=== PATIENT | female | born 2005 | race Caucasian/White ===

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

== ENCOUNTER 2023-02-02 16:24 | Emergency (ER) | payer BC, SELFPAY ==
[2023-02-02 16:40] VITALS: BP 119/73; PULSE 87; RESP 18; TEMP 37.2; O2SAT 99; BMI 26.2
--- NOTE | 2023-02-02 17:04 | CRLHL7_ITS ---
For Patients: As a result of the Century Cures Act, medical imaging exams and procedure reports are released immediately into your electronic medical record. You may view this report before your referring provider. If you have questions, please contact your health care provider. INDICATION: Right lower quadrant pain x 20 hours TECHNIQUE: CT abdomen and pelvis acquired with 72 cc Isovue 370 IV contrast. Permanently recorded images are archived. COMPARISON: None. FINDINGS: Lower chest: Unremarkable. Liver: Unremarkable. Normal in size and attenuation. No suspicious masses. Gallbladder and bile ducts: Unremarkable. No stones or inflammation. No biliary dilatation. Pancreas: Unremarkable. No mass or inflammation. Spleen: Unremarkable. Normal in size. No masses. Adrenal glands: Unremarkable. No nodules. Kidneys, Ureters, and Bladder: Unremarkable. No suspicious masses, stones, or hydronephrosis. Unremarkable ureters and bladder. GI tract: Moderate colonic stool burden. Normal in caliber. No sign of inflammation. Normal appendix. Vasculature: Abdominal aorta is normal in caliber. Mesenteric arteries are patent. Lymph nodes: No lymphadenopathy. Peritoneum/Abdominal Wall: Unremarkable. No free air or significant free fluid. Pelvis: Unremarkable. Bones: Unremarkable for age. IMPRESSION: No acute findings within the abdomen or pelvis. Normal appendix. Moderate colonic stool burden. Recommend correlation for constipation. Please note that all CT scans at this facility use dose modulation, iterative reconstruction, and/or weight-based dosing when appropriate to reduce radiation dose to as low as reasonably achievable. Dictated by Greg Lal MD @ 02/02/2023 6:32:40 PM (Electronically Signed)
[2023-02-02 17:38] LABS: Ur HCG Qualitative* Negative (Negative)
[2023-02-02 17:38] LABS: Bilirubin Urine Negative (Negative); Blood Urine Negative (Negative); Color Urine Yellow (Yellow); Glucose Urine Negative (Negative); Ketones Urine Trace (Negative); Leukocyte Esterase Urine Negative (Negative); Nitrite Urine Negative (Negative); Protein Urine Negative (Negative); pH Urine 8.5 (5.0-8.5)
[2023-02-02 17:55] LABS: Basophils Absolute Auto 0.03 K/uL (0.00-0.30); Basophils Percent Auto 0.4 % (0.0-3.0); Eosinophils Absolute Auto 0.08 K/uL (0.00-0.50); Eosinophils Percent Auto 1.1 % (0.0-7.0); Hematocrit 42.9 % (33.0-51.0); Hemoglobin* 14.5 gm/dL (12.0-16.0); Immature Granulocytes Abs Auto 0.01 K/uL (0.00-0.30); Immature Granulocytes Pct Auto 0.1 %; Lymphocytes Absolute Auto 2.42 K/uL (0.90-2.90); Lymphocytes Percent Auto 32.2 % (20-44); Mean Corpuscular HGB Conc 34 gm/dL (32-36); Mean Corpuscular Hemoglobin 27 pg (26-34); Mean Corpuscular Volume 81 fL (80-100); Monocytes Percent Auto 8.1 % (0.0-11.0); Neutrophils Absolute Auto 4.37 K/uL (1.7-7.0); Neutrophils Percent Auto 58.1 % (42.0-72.0); Platelet Count* 333 K/uL (140-440); RDW Coefficient of Variation % 12.5 % (11.5-15.5); Red Blood Count 5.32 m/uL (4.00-5.20); White Blood Count* 7.52 K/uL (4.50-11.00)
[2023-02-02 17:56] LABS: Slide Review Reflex No
--- NOTE | 2023-02-02 17:58 | ED.GENADULT ---
HPI - General Adult General Time Seen by Provider: 17:58 Date Seen: 03/04/23 Chief complaint: Abdominal Pain Stated complaint: Lower abdominal pain Time Seen by Provider: 02/02/23 17:30 Source: patient, RN notes reviewed and old records reviewed Mode of arrival: ambulatory Limitations: no limitations History of Present Illness HPI narrative: 17-year-old female who comes today with right-sided abdominal pain. Started today. Pain is in the right mid abdomen and occasionally radiates across the abdomen. Last bowel movement was loose stool about 4 hours prior to coming emergency department. Feels little bit like menstrual cramps more severe. No dysuria or hematuria, did notice a small amount of blood in the stool last time she went. No prior surgeries and has not taken anything for this, did take Zofran earlier for vomiting although she had a migraine also. Related Data Home Medications Medication Instructions Recorded Confirmed drospirenone 3 mg-ethinyl 1 tab PO 06/24/22 07/24/22 estradiol 0.02 mg tablet guanfacine 1 mg tablet 1 mg PO 06/24/22 07/24/22 topiramate 25 mg tablet 25 mg PO BID 02/02/23 02/02/23 Previous Rx's Medication Instructions Recorded ondansetron 4 mg disintegrating 4 mg PO Q8H PRN nausea and 07/24/22 tablet vomiting #7 tabs dicyclomine 10 mg capsule 10 mg PO QID PRN abdominal pain 02/02/23 #20 caps polyethylene glycol 3350 17 17 g PO DAILY #238 grams 02/02/23 gram/dose oral powder (Miralax) Allergies Allergy/AdvReac Type Severity Reaction Status Date / Time amoxicillin Allergy Mild Rash Verified 02/02/23 17:46 Penicillins Allergy Mild Rash Verified 02/02/23 17:46 Sulfa (Sulfonamide Allergy Mild Rash Verified 02/02/23 17:46 Antibiotics) PFSH [facility] Social History Smoking Status: Never smoker How often do you have a drink containing alcohol: monthly or less How often do you have six or more drinks on one occasion: Never AUDIT-C Alcohol total score: 1 Non-prescribed substance use: denies use Exam Narrative: Exam Narrative: General: Well-developed and well-nourished, no acute distress Head: Atraumatic and normocephalic Eyes: Pupils are equal reactive, extraocular motions intact, conjunctiva clear ENT: External nose and ears are normal, posterior pharynx without erythema or exudate Neck: No midline cervical tenderness, full spontaneous range of motion the neck, trachea midline, no adenopathy Heart: Regular rate and rhythm no murmurs or thrills Lungs: Clear to auscultation bilaterally without wheezes or crackles Abdomen: Mild diffuse tenderness particularly epigastric, suprapubic, periumbilical, and right-sided. Musculoskeletal: No tenderness, deformity, or edema Neurologic: Awake, alert, and oriented x3, no gross focal neurologic deficits, cranial nerves intact as tested Psych: Mood and affect are appropriate Skin: No rashes Const: Vital Signs, click to edit/add: Vital Signs - 24 hr 02/02/23 16:40 Temperature 99 F Pulse Rate [Pulse Oximeter] 87 Respiratory Rate 18 Blood Pressure [Ri ght Upper Arm] 119/73 Pulse Oximetry 99 Oxygen Delivery Me thod Room Air Course Course Hospital Course: Patient seen and examined, prior records are reviewed. Patient presents today with right-sided abdominal pain along with nausea vomiting. On initial exam, she has some generalized abdominal tenderness other than on the left side of the abdomen. test is negative. CT scan independently interpreted by me demonstrates moderate volume of stool but no other acute findings. Radiology interpretation is pending, labs independently interpreted by me with normal white blood cell count, normal urinalysis. Reevaluation(s) Time of Reevaluation #1: 18:39 Reevaluation #1: Labs independently interpreted by me with mild hypokalemia otherwise normal. Patient will be given MiraLax, Bentyl, and is stable for discharge. Vital Signs Vital signs: Initial Vital Signs Temperature 99 F 02/02/23 16:40 Temperature Source Temporal Artery Scan 02/02/23 16:40 Pulse Rate 87 02/02/23 16:40 Respiratory Rate 18 02/02/23 16:40 Blood Pressure 119/73 02/02/23 16:40 Blood Pressure Mean 88 02/02/23 16:40 Blood Pressure Position Supine 02/02/23 16:40 Pulse Oximetry 99 02/02/23 16:40 Oxygen Delivery Method Room Air 02/02/23 16:40 Vital Signs Temperature 99 F 02/02/23 16:40 Pulse Rate 87 02/02/23 16:40 Respiratory Rate 18 02/02/23 16:40 Blood Pressure 119/73 02/02/23 16:40 Pulse Oximetry 99 02/02/23 16:40 Oxygen Delivery Method Room Air 02/02/23 16:40 Temperature 99 F 02/02/23 16:40 Pulse Rate 87 02/02/23 16:40 Respiratory Rate 18 02/02/23 16:40 Blood Pressure 119/73 02/02/23 16:40 Pulse Oximetry 99 02/02/23 16:40 Oxygen Delivery Method Room Air 02/02/23 16:40 Medical Decision Making Lab Data Labs: Lab Results 02/02/23 02/02/23 02/02/23 Range/Units 15:29 17:04 17:44 WBC 7.52 (4.50-11.00) K/uL RBC 5.32 H (4.00-5.20) m/uL Hgb 14.5 (12.0-16.0) gm/dL Hct 42.9 (33.0-51.0) % MCV 81 (80-100) fL MCH 27 (26-34) pg MCHC 34 (32-36) gm/dL RDW Coeff of Marlen 12.5 (11.5-15.5) % Plt Count 333 (140-440) K/uL Neut % (Auto) 58.1 (42.0-72.0) % Lymph % (Auto) 32.2 (20-44) % Mckinley % (Auto) 8.1 (0.0-11.0) % Eos % (Auto) 1.1 (0.0-7.0) % Baso % (Auto) 0.4 (0.0-3.0) % Neut # (Auto) 4.37 (1.7-7.0) K/uL Lymph # (Auto) 2.42 (0.90-2.90) K/uL Mckinley # (Auto) 0.60 (0.00-0.90) K/UL Eos # (Auto) 0.08 (0.00-0.50) K/uL Baso # (Auto) 0.03 (0.00-0.30) K/uL Abs Immat Gran (auto) 0.01 (0.00-0.30) K/uL Imm/Tot Granulo (auto) 0.1 % Sodium 138 (135-149) mmol/L Potassium 3.4 L (3.6-5.1) mmol/L Chloride 106 (96-114) mmol/L Carbon Dioxide 24 (20-32) mmol/L BUN 12 (5-24) mg/dL Creatinine 0.7 (0.6-1.2) mg/dL Estimated Creat Clear 106.93 Estimated GFR 128 ml/min Glucose 98 (60-115) mg/dL Calcium 9.3 (8.7-10.8) mg/dL Urine Color Yellow (Yellow) Urine Appearance Clear (Clear) Urine pH 8.5 (5.0-8.5) Ur Specific [place] 1.020 (1.000-1.030) Urine Protein Negative (Negative) Urine Glucose (UA) Negative (Negative) Urine Ketones Trace A (Negative) Urine Blood Negative (Negative) Urine Nitrite Negative (Negative) Urine Bilirubin Negative (Negative) Urine Urobilinogen 1.0 (0.2-1.0) Ur Leukocyte Esterase Negative (Negative) Urine RBC 0-2 (0-2) Urine WBC 2-5 (0-5) Ur Squamous Epith Cells Moderate A (None-Few) Urine Bacteria Moderate A (None) Urine HCG, Qual Negative (Negative) Discharge Plan Discharge Clinical Impression: Constipation Patient Disposition: Home, Self-Care Condition: Stable Instructions: Constipation (DC) Additional Instructions: Take Tylenol and ibuprofen as needed for pain, warm packs can help with cramping as well. Take MiraLax as prescribed Follow-up with your primary care doctor this week Activity Level: No Restrictions Discharge Diet: Regular Prescriptions: New polyethylene glycol 3350 [Miralax] 17 gram/dose powder 17 g PO DAILY Qty: 238 0RF dicyclomine 10 mg capsule 10 mg PO QID PRN (Reason: abdominal pain) Qty: 20 0RF No Action drospirenone-ethinyl estradiol 3-0.02 mg tablet 1 tab PO Patient Comments: TAKE 1 TABLET BY MOUTH EVERY DAY guanfacine 1 mg tablet 1 mg PO Patient Comments: TAKE 1 TABLET BY MOUTH DIRECTED FOR 90 DAYS ondansetron 4 mg tablet,disintegrating 4 mg PO Q8H PRN (Reason: nausea and vomiting) Qty: 7 0RF topiramate 25 mg tablet 25 mg PO BID Follow Up/Referrals: Regine Olivares 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
[2023-02-02 18:00] LABS: Appearance Urine Clear (Clear)
[2023-02-02 18:07] LABS: Chloride* 106 mmol/L (96-114); Potassium* 3.4 mmol/L (3.6-5.1); Sodium* 138 mmol/L (135-149)
[2023-02-02 18:09] LABS: Creatinine* 0.7 mg/dL (0.6-1.2); Est. Creatinine Clearance* 106.93; Estimated Glomerular Filt Rate 128 ml/min
[2023-02-02 18:10] LABS: Blood Urea Nitrogen* 12 mg/dL (5-24); Calcium* 9.3 mg/dL (8.7-10.8); Carbon Dioxide* 24 mmol/L (20-32); Glucose* 98 mg/dL (60-115)
[2023-02-02 18:11] LABS: Bacteria Urine Moderate; RBC Urine 0-2 (0-2); Squamous Epithelial Cell Urine Moderate (None-Few)
--- OUTSIDE RECORDS SUMMARY | 2023-02-02 18:20 | XMS_ITS | Clinical Summary ---
Author Name Unknown Address [address] [facility], [place] [address] [place] [address] Phone Organization OSMAN BAUTISTA Address [address] [facility], [facility] [address] [place] [address] Phone Care Team Providers Care Natural Gas Treating Unit Operator Name Role Phone Victor M Garza MD Unavailable [phone] None, None Primary Care Provider Unavailabl e Reason for Visit and Chief Complaint The Chief Complaint is: Recheck right foot/ankle Problems Includes: Problems addressed during this encounter and other active Problems All Visits Onset Date Resolved Date Provider Condition S tatus Arthralgia - Ankle / Foot Right 03/13/2022 Anne-Marie Madrid PA-C Active Last Documented On 03/13/2022 2:44PM ; OSMAN BAUTISTA Note: Unchanged Plan of Treatment At this point, she feels like she is back to baseline. We will get her measured and fit for an ankle brace and have her begin some therapy to progress activities back to sports through the training room. I will see her in 2-3 weeks in the training room for a final evaluation and then hopefully release her fully thereafter. ELIZABETHB/jone CC: [facility] Training Room - Last Documented On 04/07/2022 7:23AM ; OSMAN BAUTISTA Pending Tests Order Diagnosis Results Due Ordering P rovider MRI - *RIGHT MRI Ankle w/o contrast Pain in right ankle and joints of right foot 04/14/22 Victor M Garza MD Last Documented On 2 9:05AM ; OSMAN BAUTISTA MRI - *RIGHT MRI Foot w/o contrast Pain in ri ght ankle and joints of right foot 04/14/22 Victor M Garza MD Last Documented On 2 9:05AM ; OSMAN BAUTISTA Instructions to patient Lose weight Last Documented On 2 8:51AM ; OSMAN BAUTISTA Education and Decision Aids were provided during visit for: Pain in right ankle and join ts of right foot (Problem) Last Documented On 2 2:15PM ; OSMAN BAUTISTA Assessments Includes: Assessments from this encounter Findings 1. Right ankle sprain, improved. - Last Documented On 04/07/2022 7:23AM ; OSMAN BAUTISTA 2. Chronic lateral foot pain with small avulsion off the cuboid. - Last Documented On 04/07/2022 7:23AM ; OSMAN BAUTISTA Instructions Includes: Instructions from this encounter Instructions to patient Lose weight Last Documented On 2 8:51AM ; OSMAN BAUTISTA Education and Decision Aids were provided during visit for: Pain in right ankle and join ts of right foot (Problem) Last Documented On 2 2:15PM ; OSMAN BAUTISTA Medical Equipment - Implanted Devices Includes: Current Devices No Medical Equipment Recorded Medications Includes: Medications discussed during this encounter and other current Medications Past Medications on file Relafen 750 MG Oral Tablet 03/17/2022 - 05/16/2022 Pro vider: Anne-Marie Madrid PA-C Diagnosis: 1 tablet twice a day with food Last Documented On 03/17/2022 4:38PM By Anne-Marie ALVAREZ ; OSMAN BAUTISTA Sertraline HCl 50 MG Oral Tablet 03/13/2022 - 04/12/20 Provider: Diagnosis: Last Documented On 2 2:30PM By Natalia De Dios ; MD [facility] guanFACINE HCl 1 MG Oral Tablet 03/13/2022 - 2 Provider: Diagnosis: Last Documented On 2 2:30PM By Natalia De Dios ; OSMAN BAUTISTA Drospirenone-Ethinyl Estradi ol 3-0.02 MG Oral Tablet 03/13/2022 - 04/10/2022 Provider: Diagnosis: Last Documented On 2 2:30PM By Natalia De Dios ; OSMAN BAUTISTA Medications Administered Includes: Administered Medications from this encounter No Administered Medications Recorded Vital Signs Includes: Vital Signs from this encounter Vital Name 04/03/2022 08:50A Height (in) 62 Weight (lb) 146 Body Mass Index (kg/m2) 26.7 BMI Percentile (percentile) 87 Body Surface Area (m2) 1.7 Last Documented On: 04/03/2022 8:51AM ; OSMAN BAUTISTA Results Includes: Results discussed during this encounter No Results Recorded For Specified Dates History of [...] OF SYSTEMS: Previous Review of Systems intake questionnaire reviewed. General: The patient currently denies recent fever or chills. Cardiovascular/Pulmonary: The patient denies chest pain or shortness of breath new from baseline. Psychological: Alert, oriented, appropriate during exam. Social History Description Last Updated Tobacco non-user 03/13/2022 Last Documented On 2 8:50AM ; OSMAN BAUTISTA No consumption of alcohol 03/13/2022 Last Documented On 2 8:50AM ; OSMAN BAUTISTA Non-smoker 03/13/2022 Last Documented On 2 8:50AM ; OSMAN BAUTISTA Not using drugs 03/13/2022 Last Documented On 2 8:50AM ; OSMAN BAUTISTA Smoking Status Unknown Procedures and Surgical History Includes: Procedures from this encounter Procedures Code Diagnosis Performing Provider Service Location Service Date AFO ANKLE GAUNTLET PRE OTS Ankle orthosis, ankle ga (Purchase, RT) L1902 Pain in right ankle and joints of right foot Victor M SULLIVAN [place] 04/03/2022 Last Documented On 2 8:54AM ; OSMAN BAUTISTA use of tobacco assessment performed 1000F Last Documented On 2 8:51AM ; OSMAN BAUTISTA Medical History Includes: Medical History addressed during this encounter No Medical History Recorded Family History Includes: Family History addressed during this encounter No Family History Recorded Review of Systems Includes: Review of Systems from this encounter No Review of Systems Recorded Mental Status Includes: Mental Status from this encounter No Mental Status Recorded Functional Status Includes: Functional Status from this encounter No Functional Status Recorded Physical Exam Includes: Physical Exam from this encounter Allergies Includes: Active Allergies Substance Type Reaction Onset Date Resolved Date Statu s Penicillins Allergy 03/13/2022 Active Last Documented On 2 8:51AM ; MD TEODORA SHELL, OSMAN Amoxicillin Allergy 03/13/2022 Active Last Documented On 2 8:51AM ; MD TEODORA SHELL, Encounters Encounter Provider Location Date Check-In Time Check-Out Time Diagnosis Follow Up Victor M Garza MD [facility] 04/03/2022 8:47AM 9:11AM Insurance Includes: Active Insurance Policies Plan Name Member ID Group # Subscriber Relationship Effect shane Dates - O - Network Blue [id number] Usha Patel Self Clinical Notes Includes: Clinical Notes from this encounter No Clinical Notes Recorded
--- OUTSIDE RECORDS SUMMARY | 2023-02-02 18:20 | XMS_ITS ---
Care Plan - OSMAN BAUTISTA Created on: February 02, 2023 Usha Patel : 2005 Sex: Female Author Name Unknown Address [address] [facility] [address] [place] [phone] Phone Organization OSMAN BAUTISTA Address [address] [facility] [address] [place] [address] Phone Care Team Providers Care Hemmer Lockstitch Name Role Phone Victor M Garza MD Unavailable [phone] None, None Primary Care Provider Unavailabl e
--- OUTSIDE RECORDS SUMMARY | 2023-02-02 18:20 | XMS_ITS ---
Author Name Unknown Address [address] [place] [address] Phone Organization OSMAN BAUTISTA Address [address] [facility], [place] [address] [place] [address] Phone Care Team Providers Care Laborer Driver Name Role Phone Victor M Garza MD Unavailable [phone] None, None Primary Care Provider Unavailabl e Problems Includes: Active, inactive, and resolved Problems All Visits Onset Date Resolved Date Provider Condition S tatus Arthralgia - Ankle / Foot Right 03/13/2022 Anne-Marie Madrid PA-C Active Last Documented On 03/13/2022 2:44PM ; OSMAN BAUTISTA Note: Unchanged Plan of Treatment Instructions to patient Lose weight Last Documented On 2 8:51AM ; OSMAN BAUTISTA Lose weight Last Documented On 2 2:45PM ; OSMAN BAUTISTA Lose weight Last Documented On 2 2:37PM ; OSMAN BAUTISTA Education and Decision Aids were provided during visit for: Pain in right ankle and join ts of right foot (Problem) Last Documented On 2 2:15PM ; OSMAN BAUTISTA Pain in right ankle and join ts of right foot (Problem) Last Documented On 2 3:57PM ; OSMAN BAUTISTA Pain in right ankle and join ts of right foot (Problem) Last Documented On 2 2:49PM ; OSMAN BAUTISTA Assessments Includes: Assessments for all patient encounters No Assessments Recorded Instructions Includes: Instructions for all patient encounters Instructions to patient Lose weight Last Documented On 2 8:51AM ; OSMAN BAUTISTA Lose weight Last Documented On 2 2:45PM ; OSMAN BAUTISTA Lose weight Last Documented On 2 2:37PM ; OSMAN BAUTISTA Education and Decision Aids were provided during visit for: Pain in right ankle and join ts of right foot (Problem) Last Documented On 2 2:15PM ; OSMAN BAUTISTA Pain in right ankle and join ts of right foot (Problem) Last Documented On 2 3:57PM ; OSMAN BAUTISTA Pain in right ankle and join ts of right foot (Problem) Last Documented On 2 2:49PM ; OSMAN BAUTISTA Medical Equipment - Implanted Devices Includes: Current and historical Devices No Medical Equipment Recorded Medications Includes: Current and historical Medications Past Medications on file Relafen 750 MG Oral Tablet 03/17/2022 - 05/16/2022 Pro vider: Anne-Marie Madrid PA-C Diagnosis: 1 tablet twice a day with food Last Documented On 03/17/2022 4:38PM By Anne-Marie ALVAREZ ; MD TEODORA SHELL, OMSAN Sertraline HCl 50 MG Oral Tablet 03/13/2022 - 04/12/20 22 Provider: Diagnosis: Last Documented On 2 2:30PM By Natalia De Dios ; MD TEODORA SHELL, OSMAN guanFACINE HCl 1 MG Oral Tablet 03/13/2022 - 2 Provider: Diagnosis: Last Documented On 2 2:30PM By Natalia De Dios ; OSMAN BAUTISTA Drospirenone-Ethinyl Estradi ol 3-0.02 MG Oral Tablet 03/13/2022 - 04/10/2022 Provider: Diagnosis: Last Documented On 2 2:30PM By Natalia De Dios ; OSMAN BAUTISTA Drospirenone-Ethinyl Estradi ol 3-0.02 MG Oral Tablet 02/14/2022 - 03/13/2022 Provider: Diagnosis: Last Documented On 2 2:30PM By Natalia De Dios ; OSMAN BAUTISTA guanFACINE HCl 1 MG Oral Tablet 02/08/2022 - 2 Provider: Diagnosis: Last Documented On 2 2:30PM By Natalia De Dios ; OSMAN BAUTISTA Sertraline HCl 50 MG Oral Tablet 01/09/2022 - 03/13/20 Provider: Diagnosis: Last Documented On 2 2:30PM By Natalia De Dios ; OSMAN BAUTISTA Medications Administered Includes: Administered Medications in patient's chart No Administered Medications Recorded Vital Signs Includes: Vital Signs from 02/02/2022 through 02/02/2023 Vital Name 04/03/2022 08:50A 03/17/2022 02:44P 03/13 02:36P Height (in) 62 62 62 Weight (lb) 146 142 144 Body Mass Index (kg/m2) 26.7 26.0 26.3 BMI Percentile (percentile) 87 85 86 Body Surface Area (m2) 1.7 1.7 1.7 Last Documented On: 04/03/2022 8:51AM ; OSMAN BAUTISTA 03/17/2022 2:44PM ; OSMAN BAUTISTA 03/13/2022 2:37PM ; OSMAN BAUTISTA Results Includes: Results from 02/02/2022 through 02/02/2023 No Results Recorded For Specified Dates History of Present Illness History of Present Illness not supported for this document type No History of Present Illness Recorded Social History Description Last Updated Tobacco non-user 03/13/2022 Last Documented On 2 3:42PM ; OSMAN BAUTISTA No consumption of alcohol 03/13/2022 Last Documented On 2 3:42PM ; OSMAN BAUTISTA Non-smoker 03/13/2022 Last Documented On 2 3:42PM ; OSMAN BAUTISTA Not using drugs 03/13/2022 Last Documented On 2 3:42PM ; OSMAN BAUTISTA Smoking Status Unknown Procedures and Surgical History Includes: Procedures from 02/02/2022 through 02/02/2023 Procedures Code Diagnosis Performing Provider Service Location Service Date AFO ANKLE GAUNTLET PRE OTS Ankle orthosis, ankle ga (Purchase, RT) L1902 Pain in right ankle and joints of right foot Victor M SULLIVAN [place] 04/03/2022 Last Documented On 2 8:54AM ; OSMAN BAUTISTA ANKLE X-RAY, 3 VIEWS (RT) 28708 Pain in right ankle and joints of right foot Victor M Garza MD [facility] 03/17/2022 Last Documented On 2 10:57AM ; OSMAN BAUTISTA FOOT XRAY, 3 VIEWS (RT) 42996 Pain in right foot Victor M Garza MD [facility] 02/27 Last Documented On 2 10:57AM ; OSMAN BAUTISTA Surgical History Last Updated No late complications of a procedure Last Documented On 2 3:42PM ; OSMAN BAUTISTA Prior surgery Tonsils removed, teeth pul led, tubes in esrs 03/13/2022 Last Documented On 2 3:42PM ; OSMAN BAUTISTA Medical History Includes: Medical History in patient's chart Description Last Updated Anxiety 03/13/2022 Last Documented On 2 3:42PM ; OSMAN BAUTISTA No history of cancer 03/13/2022 Last Documented On 2 3:42PM ; OSMAN BAUTISTA Family History Includes: Family History in patient's chart Description Last Updated Family history of cancer 03/13/2022 Last Documented On 2 3:42PM ; OSMAN BAUTISTA Family history of diabetes mellitus 02/27 Last Documented On 2 3:42PM ; OSMAN BAUTISTA Family history of heart disease 03/13/20 Last Documented On 2 3:42PM ; OSMAN BAUTISTA Review of Systems Review of Systems not supported for this document type No Review of Systems Recorded Mental Status No Mental Status Recorded Functional Status No Functional Status Recorded Physical Exam Physical Exam not supported for this document type No Physical Exam Recorded Allergies Includes: Active, inactive, and resolved Allergies Substance Type Reaction Onset Date Resolved Date Statu s Penicillins Allergy 03/13/2022 Active Last Documented On 2 8:51AM ; OSMAN ABUTISTA Amoxicillin Allergy 03/13/2022 Active Last Documented On 2 8:51AM ; OSMAN BAUTISTA Encounters Includes: Encounters from 02/02/2022 through 02/02/2023 Encounter Provider Location Date Check-In Time Check-Out Time Diagnosis Follow Up Victor M Garza MD [facility] 2 8:47AM 9:11AM Follow Up Victor M Garza MD [facility] 2 2:17PM 3:56PM New Patient Anne-aMrie Madrid PA-C [facility] 2 2:28PM 2:47PM Insurance Includes: Active Insurance Policies Plan Name Member ID Group # Subscriber Relationship Effect shane Dates 1 - BCBS [facility] [id number] Usha Shahid Clinical Notes Includes: Signed Clinical Notes starting from 03/28/2023 No Clinical Notes Recorded
--- OUTSIDE RECORDS SUMMARY | 2023-02-02 18:20 | XMS_ITS | Clinical Summary ---
Author Name Unknown Address [address] [facility], [employer] [address] [place] [address] Phone Organization OSMAN BAUTISTA Address [address] [facility], [facility] [address] [place] [address] Phone Care Team Providers Care Engine Maintenance Mechanic Name Role Phone Victor M Garza MD Unavailable [phone] None, None Primary Care Provider Unavailabl e [...] going to have her begin some therapy. Continue the boot, ice and anti-inflammatories and I will see her in two weeks. DCB/kmp - Last Documented On 03/24/2022 7:10AM ; OSMAN BAUTISTA Pending Tests Order Diagnosis Results Due Ordering P roxochitl Sports Radiology - XR Ankle: Minimum 3 view Pain in right ankle and joints of right foot 03/17/22 Victor M Garza MD Last Documented On 2 7:10AM ; OSMAN BAUTISTA Sports Radiology - XR Foot: 3 view Pain in right foot 02/27 03/20 Victor M Garza MD Last Documented On 2 7:10AM ; OSMAN BAUTISTA Lab XRAY Foot 03/17/22 Victor M Stiles Last Documented On 2 7:10AM ; OSMAN BAUTISTA Lab XRAY Ankle 03/17/22 Victor M Stiles Last Documented On 2 7:10AM ; OSMAN BAUTISTA Instructions to patient Lose weight Last Documented On 2 2:45PM ; OSMAN BAUTISTA Education and Decision Aids were provided during visit for: Pain in right ankle and join ts of right foot (Problem) Last Documented On 2 3:57PM ; OSMAN BAUTISTA Assessments Includes: Assessments from this encounter Findings Right foot and ankle pain after sprain, consistent with lateral ankle sprain. - Last Documented On 03/24/2022 7:10AM ; OSMAN BAUTISTA Instructions Includes: Instructions from this encounter Instructions to patient Lose weight Last Documented On 2 2:45PM ; OSMAN BAUTISTA Education and Decision Aids were provided during visit for: Pain in right ankle and join ts of right foot (Problem) Last Documented On 2 3:57PM ; OSMAN BAUTISTA Medical Equipment - Implanted Devices Includes: Current Devices No Medical Equipment Recorded Medications Includes: Medications discussed during this encounter and other current Medications Past Medications on file Relafen 750 MG Oral Tablet 03/17/2022 - 05/16/2022 Pro vider: Anne-Marie Madrid PA-C Diagnosis: 1 tablet twice a day with food Last Documented On 03/17/2022 4:38PM By Anne-Marie ALVAREZ ; MD [facility] SHELL PC Sertraline HCl 50 MG Oral Tablet 03/13/2022 [...] done which were negative for a fracture previously. We did repeat those today. Review of Systems: Previous review of systems intake questionnaire reviewed. General: Patient currently denies recent fever or chills. CV/Pulm: Denies chest pain or shortness of breath new from baseline. Psychological: Alert, oriented, appropriate during exam. Social History Description Last Updated Tobacco non-user 03/13/2022 Last Documented On 2 2:44PM ; OSMAN BAUTISTA No consumption of alcohol 03/13/2022 Last Documented On 2 2:44PM ; OSMAN BAUTISTA Non-smoker 03/13/2022 Last Documented On 2 2:44PM ; OSMAN BAUTISTA Not using drugs 03/13/2022 Last Documented On 2 2:44PM ; OSMAN BAUTISTA Smoking Status Unknown Procedures and Surgical History Includes: Procedures from this encounter Procedures Code Diagnosis Performing Provider Service Location Service Date ANKLE X-RAY, 3 VIEWS (RT) [id number] Pain in right ankle and joints of right foot Victor M Garza MD [facility] 03/17/2022 Last Documented On 2 10:57AM ; OSMAN BAUTISTA FOOT XRAY, 3 VIEWS (RT) [id number] Pain in right foot [facility] M [facility] 02/27 Last Documented On 2 10:57AM ; OSMAN BAUTISTA use of tobacco assessment performed 1000F Last Documented On 2 2:45PM ; OSMAN BAUTISTA Medical History Includes: Medical [...] Documented On 2 8:51AM ; OSMAN BAUTISTA Amoxicillin Allergy 03/13/2022 Active Last Documented On 2 8:51AM ; OSMAN BAUTISTA Encounters Encounter Provider Location Date Check-In Time Check-Out Time Diagnosis Follow Up Victor M Garza MD [facility] 03/17/2022 2:17PM 3:56PM Insurance Includes: Active Insurance Policies Plan Name Member ID Group # Subscriber Relationship Effect shane Dates - BC O - Network Blue [id number] Usha Shahid Clinical Notes Includes: Clinical Notes from this encounter No Clinical Notes Recorded
--- OUTSIDE RECORDS SUMMARY | 2023-02-02 18:20 | XMS_ITS | Clinical Summary ---
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 We discussed a prescription anti-inflammatory, but she states that she has quite a bit of Aleve in her dorm room so I discussed taking Aleve, 1-2 tablets in the morning and 1-2 tablets at night. 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 She is going to stay in her boot, weightbearing as tolerated. We will plan on seeing her back in the office in one week. If she is still having quite a bit of pain and discomfort then we will do repeat x-rays of her foot and ankle at that visit. She was in agreement with the above-mentioned plan and she will call back if there are any further questions, concerns, or problems. /jone - Last Documented On 03/14/2022 3:42PM ; OSMAN BAUTISTA Instructions to patient Lose weight Last Documented On 2 2:37PM ; OSMAN BAUTISTA Education and Decision Aids were provided during visit for: Pain in right ankle and join ts of right foot (Problem) Last Documented On 2 2:49PM ; OSMAN BAUTISTA Assessments Includes: Assessments from this encounter Findings Right foot pain with right ankle sprain. - Last Documented On 03/14/2022 3:42PM ; OSMAN BAUTISTA Instructions Includes: Instructions from this encounter Instructions to patient Lose weight Last Documented On 2 2:37PM [...] Last Documented On 03/17/2022 4:38PM By OSMAN Morel MD Sertraline HCl 50 MG Oral Tablet [...] encounter Procedures Code Diagnosis Performing Provider Service L ocation Service Date use of tobacco assessment performed 1000F Last Documented On 2 2:37PM ; OSMAN BAUTISTA Surgical History Last Updated [...] OSMAN BAUTISTA Family History Includes: Family History addressed during this encounter Description Last Updated Family history of cancer 03/13/2022 Last Documented On 2 3:42PM ; OSMAN BAUTISTA Family history of diabetes mellitus 02/27 Last Documented On 2 3:42PM ; OSMAN BAUTISTA Family history of heart disease 03/13/20 Last Documented On 2 3:42PM ; OSMAN BAUTISTA Review of Systems Includes: Review of Systems from this encounter General: The patient currently denies recent fever or chills. Cardiovascular/Pulmonary: The patient denies chest pain or shortness of breath new from baseline. Psychological: Alert, oriented, appropriate during exam. Mental Status Includes: Mental Status [...] Location Date Check-In Time Check-Out Time Diagnosis New Patient Anne-Marie Madrid PA-C [facility] 2 2:28PM 2:47PM Insurance Includes: Active Insurance Policies Plan Name Member ID Group # Subscriber Relationship Effect shane Dates - PPO - Network Blue [id number] Usha Shahid Clinical Notes Includes: Clinical Notes from this encounter No Clinical Notes Recorded
[2023-02-02] MEDS: KETOROLAC 15 MG/ML inj IVP (18:50)
== END 2023-02-02 18:56 | disposition home or self-care (01) ==
PROVIDERS: Family Medicine; Emergency Provider Family Medicine
DX: K59.00 Constipation, unspecified (principal)
CPT/HCPCS: 36415; 74177; 80048; 81001; 81025; 85025; 87086; 96374; 99283; 99284; 99285; J1885; Q9967